=== PATIENT | female | born 1955 | race Caucasian/White ===

== ENCOUNTER 2016-11-01 17:05 | Emergency (ER) | payer MEDICAID, OTHER ==
[~2016-11-01] VITALS: Ht 157.5 cm; Wt 67.2 kg
[2016-11-01 17:07] VITALS: Ht 157.5 cm; Wt 67.2 kg
[2016-11-01] MEDS ORDERED: ONDA4TAB8 PO (19:26)
[2016-11-01] MEDS ORDERED: MECL12.574 PO (19:26)
[2016-11-01] MEDS ORDERED: AMOX1TAB10 PO (19:26)
[2016-11-01 19:34] VITALS: BP 149/82; PULSE 78; RESP 20; TEMP 98.3
--- NOTE | 2016-11-02 02:03 | ERD ---
ER Documentation Chief Complaint Date/Time DATE: 11/02/16 TIME: 01:55 Chief Complaint left ear tinnitus HPI This is a 61-year-old female who presents to the ED with dizziness and left ear tinnitus for 4 days. Patient describes the dizziness as "room spinning around" and is produced by sudden movement of the head. Denies any recent history of fever, cough, shortness of breath, chest pain, runny nose or headache. Patient took some Tylenol for symptom relief. No recent sick contacts or foreign travel. Patient has history of hypertension, surgical history includes left knee surgery and hysterectomy. No known drug allergies. ROS All systems reviewed and are negative except as per history of present illness. Medications Home Meds Active Scripts Ondansetron Hcl* (Zofran*) 4 Mg Tablet, 4 MG PO Q6H for NAUSEA AND/OR VOMITING, #30 TAB Prov:MARYANNE DSOUZA 11/01/16 Meclizine Hcl* (Antivert*) 12.5 Mg Tab, 12.5 MG PO Q6H Y for DIZZINESS, #20 TAB Prov:MARYANNE DSOUZA 11/01/16 Amoxicillin/Potassium Clav (Amox-Clav 875-125 mg Tablet) 875-125 mg Tab, 1 TAB PO BID for 10 Days, #20 TAB Prov:MARYANNE DSOUZA 11/01/16 Allergies Allergies: Coded Allergies: No Known Allergy (Unverified , 09/27/12) PMhx/Soc History of Surgery: Yes (HYSTERECTOMY,LEFT KNEE SURGERY) Anesthesia Reaction: No Hx Neurological Disorder: No Hx Respiratory Disorders: No Hx Cardiac Disorders: Yes (HTN, HIGH TRIGLYCERIDES ) Hx Psychiatric Problems: No Hx Miscellaneous Medical Probl: No Hx Alcohol Use: No Hx Substance Use: No Hx Tobacco Use: No Smoking Status: Never smoker Physical Exam Vitals Vital Signs Date Time Temp Pulse Resp B/P Pulse Ox O2 Delivery O2 Flow Rate FiO2 11/01/16 19:34 98.3 78 20 149/82 99 Room Air 11/01/16 17:07 98.1 78 24 160/85 99 Physical Exam Physical Exam CONST: Well-developed, well-nourished, in no acute distress. Nontoxic in appearance. HEENT: Left TM is erythematous without perforation or drainage. Normal conjunctiva. EOM intact. External ear is normal. Clear oropharnyx without erythema. No uvular deviation. Moist mucous membranes. Supple neck. No meningismus. No submandibular induration. RESP: Clear to auscultation bilaterally. No wheezing. CARDIO: Regular rate and rhythm, no murmurs. ABD: Soft, non tender, non distended. Normal bowel sounds. No McBurney's point tenderness. No guarding or rigidity. No peritoneal signs. SKIN: No petechiae or rashes. BACK: No midline or flank tenderness. EXT: No cyanosis or edema. Distal pulses equal and bilateral. NEURO: Positive for Martell Hallpike test. Awake and alert, appropriate for age. 5 /5 strength in all extremities. Normal speech. Steady gait. Procedures/MDM EMERGENCY DEPARTMENT COURSE/MEDICAL DECISION MAKING This is a 61-year-old female who comes to the emergency room secondary to complaints of dizziness and left ear tinnitus. Left TM erythema was noted on examination. Patient is also positive for Martell- Hallpike test. Patient is afebrile and appears nontoxic. My primary diagnosis is otitis media. Secondary diagnosis is vertigo Differential diagnoses considered but not limited to pneumonia, bronchitis, influenza, upper respiratory infection, asthma, pharyngitis, peritonsillar abscess, otitis media, otitis externa.. Pt is hemodynamically stable upon reassessment. There are no new complaints during the ED course. The patient was discharged for outpatient management with a prescription for Zofran, meclizine and Augmentin. The patient was advised to followup with their PMD in 1-2 days and to return to the Emergency Department if there are any new or worsening symptoms. The patient understood and agreed with the diagnosis, treatment and plan. Patient is stable for discharge at this time. Departure Diagnosis: Primary Impression: Otitis media Otitis media type: unspecified Laterality: left Chronicity: unspecified Qualified Code: H66.92 - Left otitis media, unspecified chronicity, unspecified otitis media type Additional Impression: Vertigo Condition: Stable Patient Instructions: Inner Ear Problems: Causes of Dizziness (Vertigo), Otitis Media, Abx Tx (Adult) [facility] Usted se chaudhary hecho un examen mdico de control que le indica que no est en sapna condicin que requiera tratamiento urgente en el Departamento de Emergencia. Un estudio ms profundo y el tratamiento de ziegler condicin pueden esperar sin ningn riesgo hasta que usted sea atendida/o en el consultorio de ziegler mdico o sapna cl natalie. Es responsabilidad suya arreglar sapna sid para el seguimiento del rosy. MANEJO DE CONDICIONES NO URGENTES EN EL FUTURO 1) Si usted tiene un mdico de atencin primaria: Usted debera llamar a ziegler mdico de atencin primaria antes de venir al departamento de emergencia. Despus de las horas de consultorio, ziegler doctor o ziegler asociado/a est disponible por telfono. El mdico o enfermero de bucky en el servicio telefnico puede asesorarle por flaco medio para atender el problema, o rosy contrario se puede programar sapna sid. 2) Si usted no tiene un mdico de atencin primaria: Llame al mdico o clnica de referencia que aparece abajo david las horas de consultorio para hacer sapna sid para que le vean. CLINICAS: [facility] [phone] [facility] [facility] [phone] [address] [facility]. [facility] [phone] [facility] [place] [id number] [phone] [facility] [place] [id number] [phone] [facility] [phone] [facility] () Usted se chaudhary hecho un examen mdico de control que le indica que no est en sapna condicin que requiera tratamiento urgente en el Departamento de Emergencia. Un estudio ms profundo y el tratamiento de ziegler condicin pueden esperar sin ningn riesgo hasta que usted sea atendida/o en el consultorio de ziegler mdico o sapna cl natalie. Es responsabilidad suya arreglar sapna sid para el seguimiento del rosy. MANEJO DE CONDICIONES NO URGENTES EN EL FUTURO 1) Si usted tiene un mdico de atencin primaria: Usted debera llamar a ziegler mdico de atencin primaria antes de venir al departamento de emergencia. Despus de las horas de consultorio, ziegler doctor o ziegler asociado/a est disponible por telfono. El mdico o enfermero de bucky en el servicio telefnico puede asesorarle por flaco medio para atender el problema, o rosy contrario se puede programar sapna sid. 2) Si usted no tiene un mdico de atencin primaria: Llame al mdico o condado institucions de referencia que aparece abajo david las horas de consultorio para hacer sapna sid para que le vean. SI USTED NO PUEDE PAGAR PARA ARTURO UN MEDICO puede ir a: [facility] [address] [place] [address] [facility] [address] [place] [address] [facility] [address] [place] [address] [facility] [address] [place], [place] [id number] Additional Instructions: Llame a ziegler mdico de atencin primaria maana para hacer sapna sid david los pr ximos baker 1-2. Volver al Departamento de la emergencia inmediatamente si tiene cualquier s ntoma nuevo o que empeora. [place] todos los medicamentos marco lo indique. MARYANNE DSOUZA Nov 02, 2016 02:03
== END 2016-11-01 19:34 | disposition home or self-care (01) ==
LOC: FTE 17:05
DX: H66.92 Otitis media, unspecified, left ear (principal); I10 Essential (primary) hypertension; R42 Dizziness and giddiness
CPT/HCPCS: 99284

== ENCOUNTER 2019-01-12 14:40 | Emergency (ER) | payer SELFPAY ==
[~2019-01-12] VITALS: Ht 157.5 cm; Wt 69.5 kg
[~2019-01-12 14:40] MED LIST: AMOX1TAB10 PO; MECL12.574 PO; ONDA4TAB8 PO
[2019-01-12 14:44] VITALS: BP 170/84; PULSE 85; RESP 16; Ht 157.5 cm; Wt 69.5 kg
[2019-01-12] MEDS ORDERED: SOD CHLORIDE 0.9% 500 ML IV STA (15:09)
--- NOTE | 2019-01-12 15:22 | ERD ---
ER Documentation Chief Complaint Chief Complaint cough x 3 days, HOWRAD and neck pain HPI Patient is a 63 years old female with no known PMHx presenting to the clinic for fever, chills, chest pain, cough, neck pain, headaches, sinus pressure, hoarseness, nasal congestion, and diffuse body aches x 4 days. Patient reports taking OTC mucinex and tylenol without resolution. ROS All systems reviewed and are negative except as per history of present illness. Medications Home Meds Active Scripts Methylprednisolone* (Medrol* DOSE PACK) 4 Mg/Dose-Pack Tab.ds.pk, 4 MG PO . DIRECTED for 5 Days, PACKET Prov:DARLIN BARRAGAN PA-C 01/12/19 Menthol (HALLS) 7.6 Mg Lozenge, 7.6 MG MM TID for 7 Days, #21 LOZENGE Prov:DARLIN BARRAGAN PA-C 01/12/19 Guaifenesin* (Robitussin*) 100 Mg/5 Ml Syrup, 100 MG PO Q4H PRN for COUGH for 7 Days, #120 ML Prov:DARLIN BARRAGAN PA-C 01/12/19 Ondansetron Hcl* (Zofran*) 4 Mg Tablet, 4 MG PO Q6H for NAUSEA AND/OR VOMITING, #30 TAB Prov:MARYANNE DSOUZA 11/01/16 Meclizine Hcl* (Antivert*) 12.5 Mg Tab, 12.5 MG PO Q6H PRN for DIZZINESS, #20 TAB Prov:MARYANNE DSOUZA 11/01/16 Amoxicillin/Potassium Clav (Amox-Clav 875-125 mg Tablet) 875-125 mg Tab, 1 TAB PO BID for 10 Days, #20 TAB Prov:MARYANNE DSOUZA 11/01/16 Allergies Allergies: Coded Allergies: No Known Allergy (Unverified , 09/27/12) PMhx/Soc History of Surgery: Yes (HYSTERECTOMY,LEFT KNEE SURGERY) Anesthesia Reaction: No Hx Neurological Disorder: No Hx Respiratory Disorders: No Hx Cardiac Disorders: Yes (HTN, HIGH TRIGLYCERIDES ) Hx Psychiatric Problems: No Hx Miscellaneous Medical Probl: No Hx Alcohol Use: No Hx Substance Use: No Hx Tobacco Use: No Physical Exam Vitals Vital Signs Date Temp Pulse Resp B/P (MAP) Pulse Ox O2 O2 Flow FiO2 Time Delivery Rate 01/12/19 98.5 85 16 170/84 99 14:44 (112) Physical Exam Const: Lethargic in appearance. Hoarseness noted. Head: Atraumatic. Frontal, maxillary, ethmoidal sinus tenderness. Eyes: Normal Conjunctiva ENT: Normal External Ears, Nose and Mouth. Oropharyngeal erythema without exudates, lesions, edema. Neck: Full range of motion. No meningismus. Resp: Diminished breath sounds bilaterally without any signs of respiratory distress. No accessory muscle usage noted. Cardio: Regular rate and rhythm, no murmurs Neur: Awake and alert Psych: Normal Mood and Affect Results 24 hrs Current Medications Medications Dose Sig/Clari Start Time Status Last (Trade) Ordered Route PRN Stop Time Admin Dose Reason Admin Sodium 500 ml @ Q1H STAT 01/12/19 DC 01/12/19 Chloride 500 mls/hr IV 15:09 15:37 01/12/19 16:08 125 mg ONCE ONCE 01/12/19 DC 01/12/19 Methylprednis IV 15:30 15:37 olone Sodium 01/12/19 15:31 Succinate (Solu-Medrol) Procedures/MDM Patient was seen and evaluated for Viral URI w/ laryngitis and sinusitis. Patient's CXR revealed No focal infiltrate.. Influenza A&B negative. Patient was given solumedrol IV with significant improvement of symptoms. Patient denied IV fluids. Patient is stable and ready for discharge. F/U with PCP. Patient will be discharged with guaifenesin, lozenges, and Medrol Dosepak. Patient was advised to rest larynx. Departure Diagnosis: Primary Impression: Upper respiratory infection URI type: unspecified viral URI Qualified Codes: J06.9 - Acute upper respiratory infection, unspecified Condition: Stable Patient Instructions: Preventing Common Respiratory Infections Referrals: [facility] Additional Instructions: Paciente aconseja volver a Departamento de urgencias inmediatamente para sntomas nuevos o que empeoran . Paciente aconseja posteriores con el PCP en 2-3 baker . Paciente verbaliza la comprehensin y est de acuerdo con el tratamiento y el curso de accin. Si el paciente no tiene ninguna de atencin primaria pueden seguir con [facility] [address] [place] [address] o [facility] + [facility] [address] [place] [address] DARLIN BARRAGAN PA-C Jan 12, 2019 15:22
[2019-01-12] MEDS ORDERED: GUAI-637 PO (15:24)
[2019-01-12] MEDS ORDERED: MENT7.6L MM (15:24)
[2019-01-12] MEDS ORDERED: MED4DP PO (15:24)
[2019-01-12] MEDS ORDERED: METHYLPREDNISOLONE 125 MG INJ IV ONE (15:30)
== END 2019-01-12 16:57 | disposition home or self-care (01) ==
LOC: FTE 14:40
DX: J06.9 Acute upper respiratory infection, unspecified (principal); I10 Essential (primary) hypertension
CPT/HCPCS: 71046; 87400; 93005; 96361; 96374; 99285; J2930; J7040